=== PATIENT | female | born 1990 | race Caucasian/White ===

== ENCOUNTER 2019-02-07 07:47 | Emergency (ER) | payer BC, OTHER ==
[~2019-02-07] VITALS: Ht 175.3 cm; Wt 92.4 kg
[2019-02-07] MEDS ORDERED: KETOROLAC 30 MG/1 ML IM ONE (08:30)
[2019-02-07] MEDS ORDERED: KETOROLAC 60 MG/2 ML ONE (08:37)
--- NOTE | 2019-02-07 08:38 | NUR ---
TO CT VIA [facility]
[2019-02-07 09:30] VITALS: BP 108/72
== END 2019-02-07 09:56 | disposition home or self-care (01) ==
LOC: ED 08:45
DX: M54.2 Cervicalgia (principal); M54.12 Radiculopathy, cervical region; R51 Headache
CPT/HCPCS: 70450; 72125; 96372; 99284; J1885

== ENCOUNTER 2019-03-05 12:35 | Emergency (ER) | payer BC ==
[~2019-03-05] VITALS: Ht 172.7 cm; Wt 84.7 kg
--- NOTE | 2019-03-05 13:23 | NUR ---
ENGRAVER ORNAMENTAL DESIGN: PT ABLE TO PROVIDE URINE SPECIMAN, ORDERED, COLLECTED AND SENT TO LAB.
[2019-03-05 13:42] LABS: MICROSCOPIC NOT IND
[2019-03-05 13:46] LABS: CULTURE INDICATED? NO
[2019-03-05 14:37] LABS: HCG UR SG 1.033 (1.003-1.030)
[2019-03-05 14:50] LABS: BASOPHILS # (AUTO) 0.03 x10^3/uL (0-0.1); BASOPHILS % (AUTO) 0 % (0-1); EOSINOPHILS % (AUTO) 1 % (1-7); LYMPHOCYTES # (AUTO) 1.15 x10^3/uL (1-3.4); LYMPHOCYTES % (AUTO) 16 % (22-44); MD NO; MEAN CORPUSCULAR HEMOGLOBIN 31.2 pg (27.0-34.8); MEAN CORPUSCULAR HGB CONC 33.6 g/dL (32.4-35.8); MEAN PLATELET VOLUME 8.1 fL (7.4-10.4); MONOCYTES # (AUTO) 0.66 x10^3/uL (0.2-0.8); MONOCYTES % (AUTO) 9 % (2-9); NEUTROPHILS # (AUTO) 5.47 x10^3/uL (1.8-6.8); NEUTROPHILS % (AUTO) 74 % (42-75); PLATELET COUNT 281 x10^3/uL (130-400); RED BLOOD COUNT 4.77 x10^6/uL (3.82-5.3); RED CELL DISTRIBUTION WIDTH 12.4 % (9.6-15.2)
[2019-03-05 15:01] LABS: ALANINE AMINOTRANSFERASE 42 U/L (12-78); ALBUMIN 4.5 g/dL (3.4-5.0); ANION GAP 5 mmol/L (5-15); CALCIUM 9.2 mg/dL (8.5-10.1); CHLORIDE 109 mmol/L (98-107)
[2019-03-05 15:03] LABS: ALKALINE PHOSPHATASE 62 U/L (45-117); BILIRUBIN,TOTAL 0.7 mg/dL (0.2-1.0); TOTAL PROTEIN 7.8 g/dL (6.4-8.2)
[2019-03-05 15:13] VITALS: BP 155/99
--- NOTE | 2019-03-05 15:15 | NUR ---
YOLI IN HOSPITAL BED. AWAITING US RESULTS. CALL [facility]IGHT [facility] IN REACH. NO REQUESTS
== END 2019-03-05 16:12 ==
LOC: ED 16:03
DX: R10.13 Epigastric pain (principal); R10.11 Right upper quadrant pain; F17.200 Nicotine dependence, unspecified, uncomplicated
CPT/HCPCS: 36415; 76700; 80053; 81003; 81025; 83690; 85025; 99284

== ENCOUNTER 2019-03-06 01:20 | Emergency (ER) | payer BC ==
[~2019-03-06] VITALS: Ht 172.7 cm; Wt 85.7 kg
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
[2019-03-06] MEDS ORDERED: PROMETHAZINE 25 MG/ML, 1ML IM STA (02:52)
[2019-03-06] MEDS ORDERED: PROMETHAZINE 25 MG/ML, 1ML ONE (03:07)
--- NOTE | 2019-03-06 03:15 | NUR ---
PT PROVIDED UA, AND MEDICATED PER MAR. PROVIDED ADDITIONAL WARM BLANKET AND RECONNECTED TO MONITORING. ALL SAFETY MEASURES IN PLACE.
[2019-03-06 04:33] LABS: MICROSCOPIC INDICATED
[2019-03-06 04:34] LABS: AMPHETAMINE SCREEN, URINE Positive (Negative); BARBITURATE SCREEN, URINE Negative (Negative); BENZODIAZEPINE SCREEN, URINE Negative (Negative); CANNABINOID SCREEN, URINE Negative (Negative); COCAINE SCREEN, URINE Negative (Negative); METHADONE SCREEN, URINE Negative (Negative); OPIATE SCREEN, URINE Negative (Negative)
[2019-03-06 04:47] LABS: CULTURE INDICATED? YES
[2019-03-06 05:31] VITALS: BP 117/69
== END 2019-03-06 06:17 | disposition home or self-care (01) ==
LOC: ED 05:08
DX: R10.84 Generalized abdominal pain (principal); R11.0 Nausea; F15.10 Other stimulant abuse, uncomplicated
CPT/HCPCS: 80307; 81001; 87086; 96372; 99283; J2550

== ENCOUNTER 2019-03-07 14:51 | Emergency (ER) | payer BC, MEDICAID ==
[~2019-03-07] VITALS: Ht 172.7 cm; Wt 86.4 kg
--- NOTE | 2019-03-07 14:59 | NUR ---
AMBULATORY TO ED ROOM 25
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
--- NOTE | 2019-03-07 16:03 | NUR ---
US AT BEDSIDE. UNABLE TO PERFORM EKG AT THIS TIME.
[2019-03-07 16:17] LABS: BASOPHILS # (AUTO) 0.03 x10^3/uL (0-0.1); BASOPHILS % (AUTO) 1 % (0-1); EOSINOPHILS # (AUTO) 0.12 x10^3/uL (0-0.4); EOSINOPHILS % (AUTO) 2 % (1-7); LYMPHOCYTES # (AUTO) 1.19 x10^3/uL (1-3.4); LYMPHOCYTES % (AUTO) 21 % (22-44); MD NO; MEAN CORPUSCULAR HEMOGLOBIN 30.9 pg (27.0-34.8); MEAN CORPUSCULAR HGB CONC 33.6 g/dL (32.4-35.8); MEAN CORPUSCULAR VOLUME 92.1 fL (80-100); MEAN PLATELET VOLUME 8.2 fL (7.4-10.4); MONOCYTES # (AUTO) 0.65 x10^3/uL (0.2-0.8); MONOCYTES % (AUTO) 12 % (2-9); NEUTROPHILS # (AUTO) 3.63 x10^3/uL (1.8-6.8); NEUTROPHILS % (AUTO) 65 % (42-75); PLATELET COUNT 255 x10^3/uL (130-400); RED BLOOD COUNT 4.66 x10^6/uL (3.82-5.3); RED CELL DISTRIBUTION WIDTH 12.5 % (9.6-15.2)
[2019-03-07 16:20] LABS: ALANINE AMINOTRANSFERASE 41 U/L (12-78); ANION GAP 5 mmol/L (5-15); CALCIUM 8.6 mg/dL (8.5-10.1); CHLORIDE 107 mmol/L (98-107); CREATININE 0.71 mg/dL (0.55-1.02)
[2019-03-07 16:22] LABS: ALKALINE PHOSPHATASE 57 U/L (45-117); BILIRUBIN,TOTAL 0.5 mg/dL (0.2-1.0); TOTAL PROTEIN 7.2 g/dL (6.4-8.2)
--- NOTE | 2019-03-07 16:31 | NUR ---
UA COLLECTED, LABELED, AND WALKED TO LAB.
[2019-03-07 16:43] VITALS: BP 117/76
--- NOTE | 2019-03-07 16:44 | NUR ---
PT RESTING ON GURNEY. NADN. WEST.
[2019-03-07 17:29] LABS: AMPHETAMINE SCREEN, URINE Positive (Negative); BARBITURATE SCREEN, URINE Negative (Negative); BENZODIAZEPINE SCREEN, URINE Negative (Negative); CANNABINOID SCREEN, URINE Negative (Negative); COCAINE SCREEN, URINE Negative (Negative); METHADONE SCREEN, URINE Negative (Negative); OPIATE SCREEN, URINE Negative (Negative)
== END 2019-03-07 17:30 | disposition home or self-care (01) ==
LOC: ED 16:18
DX: F41.1 Generalized anxiety disorder (principal); L03.116 Cellulitis of left lower limb; R10.84 Generalized abdominal pain
CPT/HCPCS: 36415; 76700; 80053; 80307; 81025; 83690; 85025; 93005; 99284

== ENCOUNTER 2019-03-09 15:46 | Emergency (ER) | payer BC, MEDICAID ==
[~2019-03-09] VITALS: Ht 170.2 cm; Wt 84.0 kg
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
[2019-03-09] MEDS ORDERED: LORazepam 1MG TABLET ONE (16:17)
--- NOTE | 2019-03-09 16:27 | NUR ---
Discussion with WALESKA and SW regarding pt's symptoms and home life. SW to see pt prior to dispo.
[2019-03-09] MEDS ORDERED: LORazepam 1MG TABLET PO ONE (16:30)
--- NOTE | 2019-03-09 17:02 | NUR ---
CATINA SCHMITT IN TO DISCUSS PT'S DISPOSITION. AWAITING PHONE CALL FOR CLEARANCE. DISCUSSED THAT PT MAY NOT DRIVE TODAY. PT LAYING BACK IN BED, RESPIRATIONS EVEN AND UNLABORED ON RA.
[2019-03-09 17:39] VITALS: BP 137/97
== END 2019-03-09 17:41 | disposition home or self-care (01) ==
LOC: ED 17:35
DX: F15.10 Other stimulant abuse, uncomplicated (principal); F41.9 Anxiety disorder, unspecified
CPT/HCPCS: 93005; 99283

== ENCOUNTER 2019-03-25 19:01 | Emergency (ER) | payer BC, MEDICAID ==
[~2019-03-25] VITALS: Ht 172.7 cm; Wt 83.4 kg
[2019-03-25 19:11] VITALS: BP 172/98
[2019-03-25] MEDS ORDERED: SODIUM CHLORIDE FLUSH 10ML SYR IVF ONE (20:00)
--- NOTE | 2019-03-25 20:00 | NUR ---
PT BACK TO ROOM.
[2019-03-25 20:20] LABS: BASOPHILS # (AUTO) 0.03 x10^3/uL (0-0.1); BASOPHILS % (AUTO) 0 % (0-1); EOSINOPHILS # (AUTO) 0.22 x10^3/uL (0-0.4); EOSINOPHILS % (AUTO) 2 % (1-7); LYMPHOCYTES # (AUTO) 1.81 x10^3/uL (1-3.4); LYMPHOCYTES % (AUTO) 18 % (22-44); MD NO; MEAN CORPUSCULAR HEMOGLOBIN 30.8 pg (27.0-34.8); MEAN CORPUSCULAR HGB CONC 33.2 g/dL (32.4-35.8); MEAN CORPUSCULAR VOLUME 92.8 fL (80-100); MEAN PLATELET VOLUME 7.8 fL (7.4-10.4); MONOCYTES # (AUTO) 0.78 x10^3/uL (0.2-0.8); MONOCYTES % (AUTO) 8 % (2-9); NEUTROPHILS # (AUTO) 7.16 x10^3/uL (1.8-6.8); NEUTROPHILS % (AUTO) 72 % (42-75); PLATELET COUNT 358 x10^3/uL (130-400); RED CELL DISTRIBUTION WIDTH 12.6 % (9.6-15.2)
[2019-03-25 20:25] LABS: ALANINE AMINOTRANSFERASE 26 U/L (12-78); ALBUMIN 4.6 g/dL (3.4-5.0); ANION GAP 6 mmol/L (5-15); CALCIUM 9.1 mg/dL (8.5-10.1); CHLORIDE 107 mmol/L (98-107); CREATININE 0.87 mg/dL (0.55-1.02)
[2019-03-25 20:28] LABS: ALKALINE PHOSPHATASE 69 U/L (45-117); BILIRUBIN,TOTAL 0.5 mg/dL (0.2-1.0); TOTAL PROTEIN 8.1 g/dL (6.4-8.2)
--- NOTE | 2019-03-25 20:33 | NUR ---
PT IS HERE FOR CHEST WALL PAIN IN HER STERNUM AREA. PT REPORTS BEING ILL FOR A FEW WEEKS AND CURRENLTY ON ABX AND STEROIDS. PT REPORTS SHE STARTED HAVING MORE CHEST WALL PAIN WITH HER COUGHING GETTING WORSE. PTS PAIN IS REPRODUCEABLE. PT DENIES TRUAMA. PT REPORTS SHE SMOKES AND USE METH. PT REPORTS NOT USING LATELY. PT REPROTS TAKING ABX AND STEROIDS AT HOME PERSCRIBED. PT IN ROOM. AWAITING LAB RESULTS.
--- NOTE | 2019-03-25 21:10 | NUR ---
Patient/Caregiver given discharge instructions and they have confirmed that they understand the instructions. Patient ambulatory with steady gait.
== END 2019-03-25 21:22 | disposition home or self-care (01) ==
LOC: ED 20:01
DX: J20.8 Acute bronchitis due to other specified organisms (principal); B34.9 Viral infection, unspecified
CPT/HCPCS: 36415; 71045; 80053; 85025; 85379; 93005; 99284

== ENCOUNTER 2019-03-26 12:41 | Emergency (ER) | payer MEDICAID ==
[~2019-03-26] VITALS: Ht 172.7 cm; Wt 82.5 kg
[2019-03-26 12:52] VITALS: BP 138/113
--- NOTE | 2019-03-26 15:30 | NUR ---
NO ANSWER WHEN CALLED FOR ROOM PLACEMENT
--- NOTE | 2019-03-26 15:44 | NUR ---
CATTLE STICKER: CALLED FOR ROOM, NO ANSWER
--- NOTE | 2019-03-26 16:30 | NUR ---
DIRECTOR OF VIDEO ANALYTICS: CALLED FOR ROOM, NO ANSWER
== END 2019-03-26 16:32 | disposition left against medical advice (07) ==
LOC: ED 16:25
DX: R07.89 Other chest pain (principal); Z53.21 Procedure and treatment not carried out due to patient leaving prior to being seen by health care provider
CPT/HCPCS: 93005

== ENCOUNTER 2019-03-27 21:44 | Emergency (ER) | payer MEDICAID ==
[~2019-03-27] VITALS: Ht 172.7 cm; Wt 82.3 kg
--- NOTE | 2019-03-27 22:45 | NUR ---
PT RESTING WITH EYES CLOSED. MONITOR IN PLACE.
[2019-03-27 23:21] LABS: BASOPHILS # (AUTO) 0.02 x10^3/uL (0-0.1); BASOPHILS % (AUTO) 0 % (0-1); EOSINOPHILS # (AUTO) 0.25 x10^3/uL (0-0.4); EOSINOPHILS % (AUTO) 3 % (1-7); LYMPHOCYTES # (AUTO) 2.13 x10^3/uL (1-3.4); LYMPHOCYTES % (AUTO) 25 % (22-44); MD NO; MEAN CORPUSCULAR HEMOGLOBIN 31.4 pg (27.0-34.8); MEAN CORPUSCULAR HGB CONC 34.1 g/dL (32.4-35.8); MEAN CORPUSCULAR VOLUME 92.1 fL (80-100); MEAN PLATELET VOLUME 7.9 fL (7.4-10.4); MONOCYTES # (AUTO) 0.53 x10^3/uL (0.2-0.8); MONOCYTES % (AUTO) 6 % (2-9); NEUTROPHILS # (AUTO) 5.44 x10^3/uL (1.8-6.8); NEUTROPHILS % (AUTO) 65 % (42-75); PLATELET COUNT 315 x10^3/uL (130-400); RED BLOOD COUNT 4.78 x10^6/uL (3.82-5.3); RED CELL DISTRIBUTION WIDTH 12.5 % (9.6-15.2)
[2019-03-27 23:32] LABS: ALBUMIN 3.9 g/dL (3.4-5.0); ANION GAP 5 mmol/L (5-15); CALCIUM 8.6 mg/dL (8.5-10.1); CHLORIDE 108 mmol/L (98-107); CREATININE 0.88 mg/dL (0.55-1.02)
[2019-03-28 00:26] VITALS: BP 103/61
== END 2019-03-28 00:28 | disposition home or self-care (01) ==
LOC: ED 22:33
DX: R10.84 Generalized abdominal pain (principal); J20.8 Acute bronchitis due to other specified organisms
CPT/HCPCS: 36415; 80048; 82040; 85025; 93005; 99284

== ENCOUNTER 2019-03-28 23:11 | Emergency (ER) | payer BC, MEDICAID ==
[~2019-03-28] VITALS: Ht 172.7 cm; Wt 80.7 kg
[2019-03-29] MEDS ORDERED: ACETAMINOPHEN 325 MG TABLET PO ONE (00:30)
[2019-03-29] MEDS ORDERED: ACETAMINOPHEN 325 MG TABLET ONE (00:43)
[2019-03-29 00:47] VITALS: BP 130/87
[2019-03-30] MEDS ORDERED: CITA20TA9 PO (12:16)
== END 2019-03-29 02:28 | disposition home or self-care (01) ==
LOC: ED 23:30
DX: R06.00 Dyspnea, unspecified (principal); F15.10 Other stimulant abuse, uncomplicated; R51 Headache; F17.210 Nicotine dependence, cigarettes, uncomplicated; Z72.9 Problem related to lifestyle, unspecified; Z75.9 Unspecified problem related to medical facilities and other health care; Z91.14 Patient's other noncompliance with medication regimen
CPT/HCPCS: 70450; 71046; 93005; 99284

== ENCOUNTER 2019-03-29 10:01 | Emergency (ER) | payer BC, MEDICAID ==
[~2019-03-29] VITALS: Ht 170.2 cm; Wt 80.0 kg
[2019-03-29] MEDS ORDERED: ONDANSETRON ODT 4 MG ONE (10:55)
[2019-03-29] MEDS ORDERED: ONDANSETRON ODT 4 MG PO ONE (11:00)
[2019-03-29 11:43] LABS: BASOPHILS # (AUTO) 0.03 x10^3/uL (0-0.1); BASOPHILS % (AUTO) 0 % (0-1); EOSINOPHILS # (AUTO) 0.11 x10^3/uL (0-0.4); EOSINOPHILS % (AUTO) 2 % (1-7); INTERNATIONAL NORMALIZED RATIO 1.07 (0.93-1.1); LYMPHOCYTES # (AUTO) 1.58 x10^3/uL (1-3.4); LYMPHOCYTES % (AUTO) 23 % (22-44); MD NO; MEAN CORPUSCULAR HEMOGLOBIN 31.2 pg (27.0-34.8); MEAN CORPUSCULAR HGB CONC 33.6 g/dL (32.4-35.8); MEAN CORPUSCULAR VOLUME 92.8 fL (80-100); MEAN PLATELET VOLUME 8.1 fL (7.4-10.4); MONOCYTES # (AUTO) 0.58 x10^3/uL (0.2-0.8); MONOCYTES % (AUTO) 8 % (2-9); NEUTROPHILS # (AUTO) 4.65 x10^3/uL (1.8-6.8); NEUTROPHILS % (AUTO) 67 % (42-75); PLATELET COUNT 316 x10^3/uL (130-400); PROTHROMBIN TIME 11.2 Seconds (9.6-11.5); RED BLOOD COUNT 5.13 x10^6/uL (3.82-5.3); RED CELL DISTRIBUTION WIDTH 12.6 % (9.6-15.2)
[2019-03-29 11:46] LABS: ALANINE AMINOTRANSFERASE 24 U/L (12-78); ALBUMIN 4.3 g/dL (3.4-5.0); ANION GAP 7 mmol/L (5-15); CALCIUM 9.4 mg/dL (8.5-10.1); CHLORIDE 110 mmol/L (98-107); CREATININE 0.82 mg/dL (0.55-1.02)
[2019-03-29 11:48] LABS: ALKALINE PHOSPHATASE 58 U/L (45-117); BILIRUBIN,TOTAL 0.6 mg/dL (0.2-1.0); TOTAL PROTEIN 7.9 g/dL (6.4-8.2)
[2019-03-29 12:05] LABS: HCG UR SG 1.028 (1.003-1.030); MICROSCOPIC NOT IND
[2019-03-29 12:07] LABS: CULTURE INDICATED? NO
[2019-03-29 12:08] VITALS: BP 110/72
[2019-03-30] MEDS ORDERED: CITA20TA9 PO (12:16)
== END 2019-03-29 13:00 | disposition home or self-care (01) ==
LOC: ED 10:51
DX: R10.84 Generalized abdominal pain (principal)
CPT/HCPCS: 36415; 76700; 80053; 81003; 81025; 83690; 85025; 85610; 99284; Q0162

== ENCOUNTER 2019-03-30 10:51 | Emergency (ER) | payer BC, MEDICAID ==
[~2019-03-30] VITALS: Ht 172.7 cm; Wt 99.9 kg
[2019-03-30 12:01] LABS: ALBUMIN 4.8 g/dL (3.4-5.0); ANION GAP 8 mmol/L (5-15); CALCIUM 9.5 mg/dL (8.5-10.1); CHLORIDE 106 mmol/L (98-107); CREATININE 0.89 mg/dL (0.55-1.02)
[2019-03-30 12:15] LABS: BASOPHILS # (AUTO) 0.03 x10^3/uL (0-0.1); BASOPHILS % (AUTO) 0 % (0-1); EOSINOPHILS # (AUTO) 0.07 x10^3/uL (0-0.4); EOSINOPHILS % (AUTO) 1 % (1-7); LYMPHOCYTES # (AUTO) 1.73 x10^3/uL (1-3.4); LYMPHOCYTES % (AUTO) 21 % (22-44); MD NO; MEAN CORPUSCULAR HEMOGLOBIN 30.9 pg (27.0-34.8); MEAN CORPUSCULAR HGB CONC 33.1 g/dL (32.4-35.8); MEAN CORPUSCULAR VOLUME 93.3 fL (80-100); MEAN PLATELET VOLUME 8.3 fL (7.4-10.4); MONOCYTES # (AUTO) 0.52 x10^3/uL (0.2-0.8); MONOCYTES % (AUTO) 6 % (2-9); NEUTROPHILS # (AUTO) 5.96 x10^3/uL (1.8-6.8); NEUTROPHILS % (AUTO) 72 % (42-75); PLATELET COUNT 329 x10^3/uL (130-400); RED BLOOD COUNT 5.45 x10^6/uL (3.82-5.3); RED CELL DISTRIBUTION WIDTH 12.6 % (9.6-15.2)
[2019-03-30] MEDS ORDERED: CITA20TA9 PO (12:16)
[2019-03-30 12:20] VITALS: BP 124/92
== END 2019-03-30 13:18 | disposition home or self-care (01) ==
LOC: ED 13:08
DX: R07.2 Precordial pain (principal); M54.6 Pain in thoracic spine; R42 Dizziness and giddiness
CPT/HCPCS: 36415; 71045; 80048; 82040; 85025; 93005; 99284

== ENCOUNTER 2019-04-05 09:13 | Emergency (ER) | payer BC, MEDICAID ==
[~2019-04-05] VITALS: Ht 170.2 cm; Wt 80.0 kg
[~2019-04-05 09:13] MED LIST: CITA20TA9 PO
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
[2019-04-05 10:24] LABS: BASOPHILS # (AUTO) 0.01 x10^3/uL (0-0.1); BASOPHILS % (AUTO) 0 % (0-1); EOSINOPHILS # (AUTO) 0.05 x10^3/uL (0-0.4); EOSINOPHILS % (AUTO) 1 % (1-7); LYMPHOCYTES # (AUTO) 0.47 x10^3/uL (1-3.4); LYMPHOCYTES % (AUTO) 7 % (22-44); MD NO; MEAN CORPUSCULAR HEMOGLOBIN 31.1 pg (27.0-34.8); MEAN CORPUSCULAR HGB CONC 33.9 g/dL (32.4-35.8); MEAN CORPUSCULAR VOLUME 91.6 fL (80-100); MEAN PLATELET VOLUME 8.1 fL (7.4-10.4); MONOCYTES # (AUTO) 0.79 x10^3/uL (0.2-0.8); MONOCYTES % (AUTO) 12 % (2-9); NEUTROPHILS # (AUTO) 5.11 x10^3/uL (1.8-6.8); NEUTROPHILS % (AUTO) 79 % (42-75); PLATELET COUNT 239 x10^3/uL (130-400); RED BLOOD COUNT 4.66 x10^6/uL (3.82-5.3); RED CELL DISTRIBUTION WIDTH 12.3 % (9.6-15.2)
[2019-04-05 10:26] LABS: ALBUMIN 4.2 g/dL (3.4-5.0); ANION GAP 9 mmol/L (5-15); CALCIUM 8.9 mg/dL (8.5-10.1); CHLORIDE 106 mmol/L (98-107); CREATININE 0.83 mg/dL (0.55-1.02)
[2019-04-05 10:30] LABS: TROPONIN I < 0.015 ng/mL (0.000-0.045)
--- NOTE | 2019-04-05 10:33 | NUR ---
PT STATES AFTER HER BLOOD DRAWN SHE FEELS FLUSH. PT APPEARS ANXIOUS, STATING SHE FEELS ISOLATED IN ROOM 4 DOWN THE METZ. ENCOURAGED PT TO TAKE DEEP BREATHS. HR 120 ON PULSE OX. PT STATES SHE THINKS SHE HAS AN UNDERLYING PROBLEM THAT WE ARE MISSING.
--- NOTE | 2019-04-05 11:09 | NUR ---
TECH PERFORMING EKG. MD AWARE OF PT CONCERNS. ALIGNING CHECKER AT BEDSIDE.
--- NOTE | 2019-04-05 11:31 | NUR ---
KESHIA PIN PUSHER AND SHRUTHI BARREL RIFLER BROACH AT BEDSIDE. PT DISAGREES WITH POC. INCREASE IN EMOTIONAL SUPPORT GIVEN. PT CONTINUES TO BE ANXIOUS. PT TO DISCHARGE WINDOW WITH DISCHARGE PAPERS AND TAXI CAB SLIP
[2019-04-05 11:34] VITALS: BP 134/80
[2019-04-05 11:56] LABS: SALICYLATE LEVEL < 1.7 mg/dL (2.8-20.0)
== END 2019-04-05 11:38 | disposition home or self-care (01) ==
LOC: ED 09:27
DX: F41.1 Generalized anxiety disorder (principal); F15.10 Other stimulant abuse, uncomplicated; R07.89 Other chest pain; R06.02 Shortness of breath
CPT/HCPCS: 36415; 80048; 80307; 82040; 84484; 85025; 93005; 99284

== ENCOUNTER 2019-04-25 13:47 | Emergency (ER) | payer BC ==
[~2019-04-25] VITALS: Ht 170.2 cm; Wt 74.0 kg
[2019-04-25] MEDS ORDERED: PROP10TA16 PO (14:15)
[2019-04-25] MEDS ORDERED: ESCI20TA PO (14:15)
--- NOTE | 2019-04-25 14:15 | NUR ---
PT CAME IN CO OF "BEING TIRED, HAVING A HEADACHE, AND A STIFF NECK". PT RECENTLY DIAGNOSED WITH BETA BLOCKERS TO CONTROL HEART RATE. BLANKET PROVIDED.
[2019-04-25 14:17] VITALS: BP 143/84
[2019-04-25] MEDS ORDERED: METHOCARBAMOL 750 MG TABLET PO ONE (14:30)
[2019-04-25] MEDS ORDERED: METHOCARBAMOL 750 MG TABLET ONE (14:48)
[2019-04-25] MEDS ORDERED: KETOROLAC 30 MG/1 ML ONE (15:14)
--- NOTE | 2019-04-25 15:22 | NUR ---
GAVE ROBAXIN. 10 MINUTES LATER SHE VOMITTED IN THE ROOM. STATED SHE DOESNT WANT TO TAKE ANYMORE MEDICATION. PT REFUSED TORADOL. PT CO OF NEW CHEST PAIN. DR CAMACHO NOTIFIED. PT HOOKED UP TO SETTER HELPER. EKG IN PROGRESS.
[2019-04-25] MEDS ORDERED: KETOROLAC 30 MG/1 ML IM ONE (15:30)
--- NOTE | 2019-04-25 16:25 | NUR ---
PT REFUSES TO SIGN RECORDS RELEASE TO OBTAIN RECORDS FROM [facility] STATING "I'VE HAD ISSUES WITH THEM IN THE PAST SO NO".
== END 2019-04-25 17:39 | disposition home or self-care (01) ==
LOC: ED 14:30
DX: S16.1XXA Strain of muscle, fascia and tendon at neck level, initial encounter (principal); R07.9 Chest pain, unspecified; X58.XXXA Exposure to other specified factors, initial encounter; Y93.89 Activity, other specified; Y92.89 Other specified places as the place of occurrence of the external cause; Y99.8 Other external cause status
CPT/HCPCS: 72050; 93005; 93880; 99284

== ENCOUNTER 2019-04-27 03:01 | Emergency (ER) | payer BC ==
[~2019-04-27] VITALS: Ht 172.7 cm; Wt 72.0 kg
[~2019-04-27 03:01] MED LIST changes: +ESCI20TA PO; +PROP10TA16 PO
[2019-04-27 03:04] VITALS: BP 146/106
[2019-04-27 03:20] LABS: BASOPHILS # (AUTO) 0.03 x10^3/uL (0-0.1); BASOPHILS % (AUTO) 0 % (0-1); EOSINOPHILS # (AUTO) 0.19 x10^3/uL (0-0.4); EOSINOPHILS % (AUTO) 3 % (1-7); LYMPHOCYTES # (AUTO) 1.48 x10^3/uL (1-3.4); LYMPHOCYTES % (AUTO) 24 % (22-44); MD NO; MEAN CORPUSCULAR HGB CONC 33.5 g/dL (32.4-35.8); MEAN CORPUSCULAR VOLUME 89.4 fL (80-100); MEAN PLATELET VOLUME 7.8 fL (7.4-10.4); MONOCYTES # (AUTO) 0.53 x10^3/uL (0.2-0.8); MONOCYTES % (AUTO) 9 % (2-9); NEUTROPHILS # (AUTO) 3.84 x10^3/uL (1.8-6.8); NEUTROPHILS % (AUTO) 63 % (42-75); PLATELET COUNT 285 x10^3/uL (130-400); RED BLOOD COUNT 4.78 x10^6/uL (3.82-5.3); RED CELL DISTRIBUTION WIDTH 12.9 % (9.6-15.2)
--- NOTE | 2019-04-27 03:21 | NUR ---
PT PRESSED THE CALL LIGHT TO TELL ME "I DONT FEEL GOOD" PT EDUCATED ON PROPER USE OF CALL LIGHT. PT WAS FOUND TOUCHING AND PRESSING BUTTONS ON THE MONITOR. PT INFORMED NOT TO TOUCH MEDICAL EQUIPTMENT IN THE ROOM.
[2019-04-27] MEDS ORDERED: ACETAMINOPHEN 325 MG TABLET PO ONE (03:30)
[2019-04-27 03:33] LABS: ALANINE AMINOTRANSFERASE 20 U/L (12-78); ANION GAP 7 mmol/L (5-15); CALCIUM 8.8 mg/dL (8.5-10.1); CHLORIDE 106 mmol/L (98-107); CREATININE 0.81 mg/dL (0.55-1.02)
[2019-04-27 03:38] LABS: ALKALINE PHOSPHATASE 55 U/L (45-117); BILIRUBIN,TOTAL 0.4 mg/dL (0.2-1.0); TROPONIN I < 0.015 ng/mL (0.000-0.045)
== END 2019-04-27 05:03 | disposition home or self-care (01) ==
LOC: ED 03:11
DX: R07.89 Other chest pain (principal); F15.10 Other stimulant abuse, uncomplicated
CPT/HCPCS: 36415; 71046; 80053; 84484; 85025; 99284

== ENCOUNTER 2019-05-03 09:26 | Emergency (ER) | payer BC ==
[~2019-05-03] VITALS: Ht 172.7 cm; Wt 75.0 kg
[2019-05-03] MEDS ORDERED: MAALOX/HYOSCYAMINE/LIDOCAINE 45 ML BTL PO ONE (10:00)
[2019-05-03] MEDS ORDERED: ONDANSETRON ODT 4 MG PO ONE (10:00)
[2019-05-03] MEDS ORDERED: ONDANSETRON ODT 4 MG ONE (10:04)
[2019-05-03] MEDS ORDERED: MAALOX/HYOSCYAMINE/LIDOCAINE 45 ML BTL ONE (10:05)
[2019-05-03 10:07] LABS: BASOPHILS # (AUTO) 0.02 x10^3/uL (0-0.1); BASOPHILS % (AUTO) 0 % (0-1); EOSINOPHILS # (AUTO) 0.05 x10^3/uL (0-0.4); EOSINOPHILS % (AUTO) 1 % (1-7); LYMPHOCYTES # (AUTO) 1.48 x10^3/uL (1-3.4); LYMPHOCYTES % (AUTO) 30 % (22-44); MD NO; MEAN CORPUSCULAR HEMOGLOBIN 30.3 pg (27.0-34.8); MEAN CORPUSCULAR VOLUME 89.3 fL (80-100); MEAN PLATELET VOLUME 7.7 fL (7.4-10.4); MONOCYTES # (AUTO) 0.44 x10^3/uL (0.2-0.8); MONOCYTES % (AUTO) 9 % (2-9); NEUTROPHILS # (AUTO) 2.96 x10^3/uL (1.8-6.8); NEUTROPHILS % (AUTO) 60 % (42-75); PLATELET COUNT 236 x10^3/uL (130-400); RED BLOOD COUNT 4.73 x10^6/uL (3.82-5.3); RED CELL DISTRIBUTION WIDTH 13.1 % (9.6-15.2)
--- NOTE | 2019-05-03 10:15 | NUR ---
BACK FROM IMAGING, MEDICATED ORDERED. PT AWARE OF NEEDED URINIE SAMPLE
[2019-05-03 10:20] LABS: ALANINE AMINOTRANSFERASE 19 U/L (12-78); ALBUMIN 3.9 g/dL (3.4-5.0); ANION GAP 6 mmol/L (5-15); CALCIUM 8.4 mg/dL (8.5-10.1); CHLORIDE 107 mmol/L (98-107); CREATININE 0.77 mg/dL (0.55-1.02)
[2019-05-03 10:25] LABS: ALKALINE PHOSPHATASE 48 U/L (45-117); BILIRUBIN,TOTAL 0.4 mg/dL (0.2-1.0); TOTAL PROTEIN 6.7 g/dL (6.4-8.2); TROPONIN I < 0.015 ng/mL (0.000-0.045)
[2019-05-03 10:30] VITALS: BP 119/73
[2019-05-03 10:43] LABS: MICROSCOPIC NOT IND
[2019-05-03 10:45] LABS: CULTURE INDICATED? NO
--- NOTE | 2019-05-03 11:05 | NUR ---
DISCHARGE INSTRUCTIONS REVIEWED
== END 2019-05-03 11:21 | disposition home or self-care (01) ==
LOC: ED 09:29
DX: R10.13 Epigastric pain (principal); R10.33 Periumbilical pain
CPT/HCPCS: 36415; 74022; 80053; 81003; 83690; 84484; 84703; 85025; 99284; Q0162

== ENCOUNTER 2019-05-11 22:29 | Emergency (ER) | payer BC ==
[~2019-05-11] VITALS: Ht 170.2 cm; Wt 72.7 kg
[2019-05-11 23:36] LABS: HCG UR SG 1.024 (1.003-1.030); MICROSCOPIC NOT IND
[2019-05-11 23:39] LABS: CULTURE INDICATED? NO
[2019-05-11 23:42] LABS: BASOPHILS # (AUTO) 0.02 x10^3/uL (0-0.1); BASOPHILS % (AUTO) 0 % (0-1); EOSINOPHILS # (AUTO) 0.13 x10^3/uL (0-0.4); EOSINOPHILS % (AUTO) 2 % (1-7); LYMPHOCYTES # (AUTO) 1.98 x10^3/uL (1-3.4); LYMPHOCYTES % (AUTO) 28 % (22-44); MD NO; MEAN CORPUSCULAR HEMOGLOBIN 30.5 pg (27.0-34.8); MEAN CORPUSCULAR VOLUME 89.6 fL (80-100); MONOCYTES # (AUTO) 0.51 x10^3/uL (0.2-0.8); MONOCYTES % (AUTO) 7 % (2-9); NEUTROPHILS # (AUTO) 4.38 x10^3/uL (1.8-6.8); NEUTROPHILS % (AUTO) 62 % (42-75); PLATELET COUNT 268 x10^3/uL (130-400); RED BLOOD COUNT 4.87 x10^6/uL (3.82-5.3); RED CELL DISTRIBUTION WIDTH 13.2 % (9.6-15.2)
[2019-05-11 23:53] LABS: ALANINE AMINOTRANSFERASE 21 U/L (12-78); ANION GAP 6 mmol/L (5-15); CALCIUM 8.9 mg/dL (8.5-10.1); CHLORIDE 108 mmol/L (98-107); CREATININE 0.77 mg/dL (0.55-1.02)
[2019-05-11 23:56] LABS: ALKALINE PHOSPHATASE 50 U/L (45-117); BILIRUBIN,TOTAL 0.4 mg/dL (0.2-1.0); TOTAL PROTEIN 7.1 g/dL (6.4-8.2)
[2019-05-12 00:06] VITALS: BP 133/70
--- NOTE | 2019-05-12 00:20 | NUR ---
RN TO ROOM TO DC PT. ALL BELONGINGS REMOVED FROM ROOM. GOWN ON RMOUNT MORRIS. PT ASSUMED TO HAVE LEFT PRIOR TO RECEIVING DC EDUCATION.
== END 2019-05-12 00:38 ==
LOC: ED 05-12 00:32
DX: R10.11 Right upper quadrant pain (principal); R06.00 Dyspnea, unspecified; R11.0 Nausea; R19.7 Diarrhea, unspecified; F17.200 Nicotine dependence, unspecified, uncomplicated
CPT/HCPCS: 36415; 71045; 80053; 81003; 81025; 83690; 85025; 99284

== ENCOUNTER 2019-05-12 13:12 | Emergency (ER) | payer BC ==
[~2019-05-12] VITALS: Ht 170.2 cm; Wt 70.9 kg
[2019-05-12 13:15] VITALS: BP 132/96
--- NOTE | 2019-05-12 14:06 | NUR ---
CALLED PATIENT TO ROOM NO ANSWER
--- NOTE | 2019-05-12 15:04 | NUR ---
called patient no answer
--- NOTE | 2019-05-12 15:21 | NUR ---
CALLED PATIENT NO ANSWER
== END 2019-05-12 15:29 | disposition left against medical advice (07) ==
LOC: ED 14:50
DX: R10.9 Unspecified abdominal pain (principal); R19.7 Diarrhea, unspecified; M54.2 Cervicalgia; Z53.21 Procedure and treatment not carried out due to patient leaving prior to being seen by health care provider

== ENCOUNTER 2019-05-15 13:55 | Emergency (ER) | payer BC ==
[~2019-05-15] VITALS: Ht 170.2 cm; Wt 70.9 kg
[2019-05-15 13:58] VITALS: BP 147/106
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
== END 2019-05-15 14:53 | disposition home or self-care (01) ==
LOC: ED 14:29
DX: R00.2 Palpitations (principal); R07.9 Chest pain, unspecified
CPT/HCPCS: 93005; 99283

== ENCOUNTER 2019-05-20 01:07 | Emergency (ER) | payer BC ==
[~2019-05-20] VITALS: Ht 170.2 cm; Wt 70.6 kg
[2019-05-20 01:11] VITALS: BP 134/96
--- NOTE | 2019-05-20 01:25 | NUR ---
CALLED BACK TO ROOM, PT THEN GOT DOORWAY AND DECIDED TO [facility]OPE STATING, "IM JUST GOING TO GO HOME, YOU GUYS NEVER DO ANYTHING FOR ME ANYWAYS."
== END 2019-05-20 01:27 ==
LOC: ED 01:21
DX: R09.89 Other specified symptoms and signs involving the circulatory and respiratory systems (principal); Z53.21 Procedure and treatment not carried out due to patient leaving prior to being seen by health care provider
CPT/HCPCS: 93005

== ENCOUNTER 2019-05-23 11:32 | Emergency (ER) | payer BC ==
[~2019-05-23] VITALS: Ht 170.2 cm; Wt 70.3 kg
[2019-05-23 11:35] VITALS: BP 124/77
--- NOTE | 2019-05-23 12:01 | NUR ---
chopper gun operator: no answer from lobby at this time
--- NOTE | 2019-05-23 12:18 | NUR ---
failure analysis technician: no answer from lobby at this time
--- NOTE | 2019-05-23 12:31 | NUR ---
berry picker: no answer from lobby at this time
--- NOTE | 2019-05-23 12:40 | NUR ---
grocery store bagger: Pt returned to ED, buzzed RN station asking "is my room ready yet?" in NAD
--- NOTE | 2019-05-23 12:45 | NUR ---
lockstitch pocket setter: Pt called to be taken to room, pt is not in lobby at this time.
--- NOTE | 2019-05-23 12:55 | NUR ---
regulator mechanic: Pt called to be taken to room, pt is not in lobby at this time.
--- NOTE | 2019-05-23 13:28 | NUR ---
assembler radio and electrical: Pt has still not returned to lobby at this time, presumed to have left hospital
== END 2019-05-23 12:35 | disposition left against medical advice (07) ==
LOC: ED 12:29
DX: R07.9 Chest pain, unspecified (principal); Z53.21 Procedure and treatment not carried out due to patient leaving prior to being seen by health care provider

== ENCOUNTER 2019-05-23 18:59 | Emergency (ER) | payer BC ==
[~2019-05-23] VITALS: Ht 172.7 cm; Wt 70.0 kg
--- NOTE | 2019-05-23 19:09 | NUR ---
ST ON MONITOR. CALL WILEY IN REACH. AWAITING MD DOBBINS.
[2019-05-23] MEDS ORDERED: MAALOX/HYOSCYAMINE/LIDOCAINE 45 ML BTL ONE (19:23)
--- NOTE | 2019-05-23 19:24 | NUR ---
PT GIVEN GI COCKTAIL AND WATER. PT RELUCTANT TO TAKE MEDS. EDUCATION PROVIDED. PT TOOK 1 SIP OF MAALOX AND REFUSED TO DRINK REST.
[2019-05-23] MEDS ORDERED: MAALOX/HYOSCYAMINE/LIDOCAINE 45 ML BTL PO ONE (19:30)
--- NOTE | 2019-05-23 19:58 | NUR ---
PT TO BE DC. ATTEMPT TO GIVE PT DC INFO: "I WANT TO SPEAK TO THE DOCTOR". ISAAC NOTIFIED, STS WILL SPEAK W/ PT.
[2019-05-23 20:37] VITALS: BP 103/59
--- NOTE | 2019-05-23 20:39 | NUR ---
jolene was in to speak w/ pt. pt sts "i don't remember" reluctant to leave. given dc info and education. unhooked. encouraged to get dress and cooperative w/ staff. as
--- NOTE | 2019-05-23 21:06 | NUR ---
patient dressed up and states that she is allergic to pepcid. not on her allergy list. so this RN placed pepcid on her list of allery. MD prescibed her pepcid, patient now wanting to talk to MD before leaving and to change prescription.
--- NOTE | 2019-05-23 21:14 | NUR ---
per MD tell the patient she can take over the counter medication. bus pass provided to patient.
== END 2019-05-23 21:17 | disposition home or self-care (01) ==
LOC: ED 21:10
DX: R07.89 Other chest pain (principal); K21.9 Gastro-esophageal reflux disease without esophagitis; F15.129 Other stimulant abuse with intoxication, unspecified; F17.200 Nicotine dependence, unspecified, uncomplicated; Z72.9 Problem related to lifestyle, unspecified
CPT/HCPCS: 93005; 99283

== ENCOUNTER 2019-05-25 06:24 | Emergency (ER) | payer BC ==
[~2019-05-25] VITALS: Ht 170.2 cm; Wt 70.7 kg
[2019-05-25 06:27] VITALS: BP 127/84
--- NOTE | 2019-05-25 06:57 | NUR ---
report receivef from Dennise centeno.
--- NOTE | 2019-05-25 07:26 | NUR ---
warm blancket given at this time.
--- NOTE | 2019-05-25 08:26 | NUR ---
edmd at bedside to evaluate. pt c/o cp/vaginal dc/espinoza(multiple complaints) now. pt needs to leave now d/t court order. edmd educated pt regarding her exams which are not done in 30 min. pt states "i will be back after court."
== END 2019-05-25 08:27 | disposition home or self-care (01) ==
LOC: ED 07:36
DX: R07.89 Other chest pain (principal); R51 Headache; M54.2 Cervicalgia; R05 Cough; K21.9 Gastro-esophageal reflux disease without esophagitis
CPT/HCPCS: 99281

== ENCOUNTER 2019-05-25 10:00 | Emergency (ER) | payer BC ==
[~2019-05-25] VITALS: Ht 170.2 cm; Wt 70.7 kg
[2019-05-25] MEDS ORDERED: KETOROLAC 30 MG/1 ML ONE (10:57)
[2019-05-25] MEDS ORDERED: METOCLOPRAMIDE 5 MG/ML, 2ML ONE (10:57)
[2019-05-25] MEDS ORDERED: DIPHENHYDRAMINE 50 MG/ML, 1ML ONE (10:57)
[2019-05-25] MEDS ORDERED: DIPHENHYDRAMINE 50 MG/ML, 1ML IVPush ONE (11:00)
[2019-05-25] MEDS ORDERED: SODIUM CHLORIDE FLUSH 10ML SYR IVF ONE (11:00)
[2019-05-25] MEDS ORDERED: SODIUM CHLORIDE 0.9% 1,000ML IVBOLUS ONE (11:00)
[2019-05-25] MEDS ORDERED: METOCLOPRAMIDE 5 MG/ML, 2ML IVPush ONE (11:00)
[2019-05-25] MEDS ORDERED: KETOROLAC 30 MG/1 ML IVPush ONE (11:00)
[2019-05-25 11:01] LABS: HCG UR SG 1.022 (1.003-1.030)
[2019-05-25 11:02] LABS: MICROSCOPIC INDICATED
[2019-05-25 11:07] VITALS: BP 122/87
--- NOTE | 2019-05-25 11:08 | NUR ---
RECEIVED REPORT FROM BELLA GALLARDO, ASSUMING CARE OF PT NOW. PT MEDICATED PER MAR, DECLINED BENADRYLE AND REGLAN. VSS. CALL LIGHT WITHIN REACH.
--- NOTE | 2019-05-25 11:41 | NUR ---
ALL RESULTS BACK AT THIS TIME, CHART UP FOR RECHECK. FOUND PT IN ROOM GETTING DRESSED, DISCONNECTED FLUIDS. WHEN THIS RN ASKED TO RECONNECT, PT STS NOT UNTIL SHE KNOWS HER POC. MD JANET CORONA.
--- NOTE | 2019-05-25 12:10 | NUR ---
PT ELOPED FROM UNIT PRIOR TO MD RECHECK AND DC PAPERS. IV CATH FOUND PULLED OUT IN ROOM
== END 2019-05-25 12:16 | disposition left against medical advice (07) ==
LOC: ED 12:10
DX: R07.89 Other chest pain (principal); M94.0 Chondrocostal junction syndrome [Tietze]; A59.01 Trichomonal vulvovaginitis; R51 Headache; K21.9 Gastro-esophageal reflux disease without esophagitis
CPT/HCPCS: 81001; 81025; 93005; 96374; 99284; J1885; J7030

== ENCOUNTER 2019-07-23 03:31 | Emergency (ER) | payer BC, MEDICAID ==
[~2019-07-23] VITALS: Ht 170.2 cm; Wt 70.7 kg
[2019-07-23 03:33] VITALS: BP 155/105
--- NOTE | 2019-07-23 04:09 | NUR ---
pt not in lobby x 2
== END 2019-07-23 04:11 | disposition left against medical advice (07) ==
LOC: ED 04:05
DX: R11.2 Nausea with vomiting, unspecified (principal); R42 Dizziness and giddiness; Z53.21 Procedure and treatment not carried out due to patient leaving prior to being seen by health care provider
CPT/HCPCS: 93005

== ENCOUNTER 2019-11-04 19:50 | Emergency (ER) | payer MEDICAID ==
[~2019-11-04] VITALS: Ht 170.2 cm; Wt 72.6 kg
[2019-11-04 20:14] VITALS: BP 127/82
--- NOTE | 2019-11-04 21:11 | NUR ---
D/C INSTRUCTIONS, MEDS & F/U APPT RV'WD WITH PT, SHE VERBALIZES UNDERSTANDING. RX GIVEN X1. BUS PASS GIVEN PER REQUEST. PT STATES SHE WILL F/U WITH [facility]. AMBULATED OUT OF ED WITHOUT DIFFICULTY.
== END 2019-11-04 21:12 | disposition home or self-care (01) ==
LOC: ED 20:55
DX: H66.002 Acute suppurative otitis media without spontaneous rupture of ear drum, left ear (principal); H92.01 Otalgia, right ear; R09.81 Nasal congestion; K21.9 Gastro-esophageal reflux disease without esophagitis
CPT/HCPCS: 99283